=== PATIENT | male | born 1980 | race Hispanic/Latino ===

== ENCOUNTER 2023-01-14 19:38 | Emergency (ER) | payer BC | END 2023-01-14 20:43 | disposition home or self-care (01) | LOC: ERS 19:38 | DX: S61.210A Laceration without foreign body of right index finger without damage to nail, initial encounter (principal); S61.212A Laceration without foreign body of right middle finger without damage to nail, initial encounter; W26.0XXA Contact with knife, initial encounter; Y93.G3 Activity, cooking and baking | CPT/HCPCS: 99282 ==

== ENCOUNTER 2023-07-26 09:19 | Emergency (ER) | payer BC | END 2023-07-26 11:38 | disposition home or self-care (01) | LOC: ERS 09:19 | DX: M79.661 Pain in right lower leg (principal) ==